=== PATIENT | female | born 1995 | race Caucasian/White ===

== ENCOUNTER → 2024-10-11 13:33 | Outpatient (CLI) | payer OTHER, SELFPAY ==
[2024-10-11 16:21] LABS: Urine Chlamydia NOT DETECTED; Urine N gonorrhoeae NOT DETECTED
== END ==
PROVIDERS: Visit Provider Obstetrics & Gynecology
DX: Z34.81 Encounter for supervision of other normal pregnancy, first trimester (principal); Z3A.08 8 weeks gestation of pregnancy
CPT/HCPCS: 87491; 87591

== ENCOUNTER → 2024-11-08 14:34 | Outpatient (CLI) | payer OTHER, SELFPAY ==
[2024-11-08 15:39] LABS: Add Manual Diff / Slide Review NO; Basophils Absolute Auto 0 /uL (0-100); Basophils Percent Auto 0.4 % (0-2); Eosinophils Absolute Auto 100 /uL (0-450); Eosinophils Percent Auto 0.6 % (2-4); Hematocrit 36.9 % (36-46); Hemoglobin 12.5 g/dL (12.0-16.0); Lymphocytes Absolute Auto 2100 /uL (1100-4500); Lymphocytes Percent Auto 24.7 % (25-40); Mean Corpuscular Volume 85.2 fL (80-100); Monocytes Absolute Auto 300 /uL (0-900); Monocytes Percent Auto 3.8 % (3-14); Neutrophils Absolute Auto 5800 /uL (1500-7000); Neutrophils Percent Auto 70.5 % (50-75); Platelet Count 280 X10^3/uL (150-400); Red Blood Cell Count 4.33 X10^6/uL (4.0-5.2); Red Cell Distribution Width 13.7 % (11.6-14.8); White Blood Cell Count 8.3 X10^3/uL (4.5-11.0)
[2024-11-08 15:45] LABS: Natera Collection Specimen Collected
[2024-11-08 15:58] LABS: HEMOLYSIS < 15 (0-50); Iron 80 ug/dL (37-170)
[2024-11-08 16:09] LABS: Percent Iron Saturation 24 % (15-50); Total Iron Binding Capacity 339 ug/dL (265-497); Transferrin 327 mg/dL (206-381)
[2024-11-10 05:10] LABS: RPR Screen Non Reactive (Non Reactive); Varicella IgG Antibody Reactive (Non Reactive)
[2024-11-10 17:24] LABS: Hepatitis B Surface Antigen NEGATIVE s/c (NEGATIVE); Rubella Antibody IgG 50.9 IU/mL (>15)
[2024-11-10 17:41] LABS: HIV 1 & 2 Ab/Ag 4th Gen Combo NEGATIVE (NEGATIVE); Hep C Virus Ab w/Reflex Quant NEGATIVE s/c (NEGATIVE)
== END ==
PROVIDERS: Student in an Organized Health Care Education/Training Program; Referring Provider Obstetrics & Gynecology; Visit Provider Obstetrics & Gynecology
DX: Z34.80 Encounter for supervision of other normal pregnancy, unspecified trimester (principal); Z36.0 Encounter for antenatal screening for chromosomal anomalies; D50.9 Iron deficiency anemia, unspecified
CPT/HCPCS: 36415; 80055; 83540; 83550; 86787; 86803; 86850; 86870; 86886; 86900; 86901; 87086; 87389

== ENCOUNTER → 2025-01-02 11:51 | Outpatient (CLI) | payer OTHER, SELFPAY ==
--- NOTE | 2025-01-02 11:52 | DI.US.S_ITS ---
PROCEDURE: US OB >= 14 WEEKS FETUS INDICATIONS: 20 week anatomy scan OUTSIDE/PRIOR DATING DATA: Last menstrual period (LMP): 08/12/2024. LMP-based estimated date of delivery (RANDY): 05/19/2025. First dating scan (date and location): 10/11/2024. Estimated date of delivery (RANDY) from first dating scan: 05/19/2025. The calculations are made using the Clinical/ultrasound RANDY of 05/19/2025. TECHNIQUE: Real-time scanning was performed of the fetus, with image documentation and biometric measurements. COMPARISON: [facility], , US OB <= 14 WEEKS FETUS, 11/08/2024, 14:33. FINDINGS: General: A single living intrauterine gestation is present. Presentation: Breech. Placenta: Placental position is anterior , without previa. Amniotic fluid index: 20.2 cm, normal range is 5-24 cm. Single deepest vertical pocket is 6.8 cm. heart rate: 144 beats per minute. Maternal cervical canal: 4.7 cm long. Normal lower limit is 2.5 cm. biometrics: Biparietal diameter: 5.1 cm 21 weeks 3 days Head circumference: 18.9 cm 21 weeks 1 day Abdominal circumference: 16.7 cm 21 weeks 4 days Femur length: 3.4 cm 20 weeks 4 days Clinically estimated gestational age: 20 weeks 3 days Composite gestational age from present scan: 21 weeks 1 day Estimated weight and percentile: 402 g 83rd percentile Anatomic survey: Neuro: Ventricles are non-dilated at less than 10 mm. Cisterna magna is normal at 3-11 mm. Cerebellum is normal in size and morphology. Nuchal skin fold: Normal at less than 6 mm between 14-21 weeks gestational age. Face: Nose and lips, facial profile are normal. Spine: No evidence for spina bifida. Heart: 4-chambered heart is present, with normal ventricular outflow tracts. Diaphragm: Diaphragm is intact. Stomach: Left-sided stomach is present. Kidneys: No hydronephrosis. Normal is less than 5 mm in 2nd trimester, less than 7 mm in 3rd trimester. Cord: 3-vessel cord has orthotopic insertion. Bladder: Normal in size. Extremities: All 4 extremities identified. IMPRESSION: Single live intrauterine with gestational age today of 21 weeks 1 day. Anatomy is within normal limits. We strive to produce accurate, complete, and clear reports of imaging services. To assist us in improving patient care, this report was composed using standard report templates and voice recognition software. Therefore, it may contain abnormal punctuation, insertions and/or omissions. Occasional wrong-word or sound-alike substitutions may occur. Though we review the report and make efforts to correct it, we do recommend that the report be read carefully in proper context to recognize any text inaccuracies. Dictated by: Ale Turner M.D. on 01/02/2025 at 16:06 Approved by: Ale Turner M.D. on 01/02/2025 at 16:07
== END ==
PROVIDERS: Referring Provider Student in an Organized Health Care Education/Training Program; Visit Provider Student in an Organized Health Care Education/Training Program
DX: Z34.82 Encounter for supervision of other normal pregnancy, second trimester (principal); Z3A.21 21 weeks gestation of pregnancy
CPT/HCPCS: 76811

== ENCOUNTER 2025-02-02 18:47 | Inpatient (IN) | payer OTHER, SELFPAY ==
--- NOTE | 2025-02-02 19:25 | PM.OBHP.IH.1 ---
OB HPI Date/Time Date of admission: 02/02/25 Date Patient Seen: 02/02/25 Time Patient Seen: 19:26 History of Present Condition Chief complaint: demise RANDY Calculator Estimated Delivery Date Method Current WG Current Estimate 05/19/25 Ultrasound #1 24w 6d Other Estimates 05/19/25 Conception 24w 6d : 2 Para: 1 Narrative: 29yo at 24+6wks presented today after diagnosis of demise at outside ER. She reports feeling whole body itching that started 3 days ago, then went to the ER yesterday where she was found to have a demise. care: good care Dating criteria OB: LMP confirmed by 1st trimester US Ultrasounds: normal mid trimester US Narrative: Ultrasound Ultrasound Details:: Anatomy US 01/02/25: normal anatomy, anterior placenta, EFW 83%ile Expected Delivery Route/Plan Specific Issues/Plans [x] cfDNA- low risk XY Obesity (pre-preg BMI 30) Hx of gallstones (may need referral but [facility]) Gui Assigned to [facility] Indications Indication for induction OB: other ( demise) Preadmission Labs Last OB Lab Results: Blood Type O Positive 11/08/24 14:44 Antibody Screen Positive 11/08/24 14:44 Hct 36.9 % (36-46) 11/08/24 14:44 Hgb 12.5 g/dL (12.0-16.0) 11/08/24 14:44 Hep Bs Antigen Negative s/c (NEGATIVE) 11/08/24 14:44 Hepatitis C Antibody Negative s/c (NEGATIVE) 11/08/24 14:44 Rubella Antibody 50.9 IU/mL (>15) 11/08/24 14:44 VZV IgG Antibody Reactive (Non Reactive) 11/08/24 14:44 -: Chlamydia screen: negative, Gonorrhea screen: negative and Urine: negative Genetic Screens: Cell-free DNA: Normal External Labs -: Urine: negative Prior (ies) Past Pregnancies Del. Date GA/Weeks Labor Lgth Wt Sex Route Outcome Anesthesia Place Delv Breastfeed Preg Comp Name 11/03/22 40.5 8 lb Female vaginal live - full term epidural Sabianism [place] Still going as of 10/05/24 post-dates induction [facility] Evaluation Evaluation Baseline heart rate: 0 Comments: demise confirmed on bedside ultrasound [facility] Medical History (Updated 12/06/24 @ 14:10 by Donna Park DO) Abscessed tooth (~07/2024) Abnormal ECG Exercise-induced asthma Stress fracture of lumbar vertebra Pancreatitis (~07/2023) Surgical History (Updated 10/05/24 @ 13:42 by Shavon Payne RN) History of carpal tunnel release History of tonsillectomy Family History (Updated 10/05/24 @ 13:44 by Shavon Payne RN) Mother Breast cancer Fibromyalgia Grandfather GERD (gastroesophageal reflux disease) Social History marital status: number of children: 1 household members: spouse and children lives independently: Yes caregiver/support person: Yes housing: house pets and animals: Yes (cat) education level: college (associate's degree) occupational status: unemployed current occupational exposures/hazards: No special sven needs: No travel history: over 6 months ago seatbelt use: always water heater temp set < 120 deg: No working smoke detector in home: Yes fire extinguisher in home: Yes carbon monox detector in home: Yes firearms in home: No do you feel safe at home: Yes Tobacco: How many years used: 6 second hand exposure: Yes ( vapes, not around pt) alcohol intake: never substance use type: does not use during the past year weight has: remained stable well-balanced diet: about half the time daily servings fruits/ve-4 caffeine: Yes (occasional black tea) Type(s) of exercise: none Meds Home Medications and Allergies Home Medications Medication Instructions Recorded Confirmed Type [id number] 400 mcg-om3 35 mg-dha 25 tab PO 10/05/24 01/17/25 History mg-epa 5 mg-fish oil chewable tablet ondansetron 8 mg disintegrating 8 mg PO Q8H 10/05/24 01/17/25 History tablet ondansetron HCl 4 mg tablet 4 mg PO Q8H #20 tabs 10/11/24 01/17/25 Rx Allergies Allergy/AdvReac Type Severity Reaction Status Date / Time adhesive AdvReac Intermediate Rash Verified 02/02/25 19:41 Opioids - Morphine Analogues AdvReac Intermediate Vomiting Verified 01/17/25 10:18 Review of Systems Review of Systems ROS: Yes All systems reviewed with the patient and are negative except as otherwise documented OB Exam Resp Effort & Inspection: normal respiratory effort and able to speak in complete sentences Extremities Lower extremity: Yes normal to inspection GI Other: soft, nontender Presentation: transverse/shoulder Assessment and Plan Assessment and Plan Assessment and Plan narrative: 29yo at 24+6wks with newly diagnosed demise, admitted for induction of labor. Noted to have anti-rimma antibodies on her new OB labs. -discussed plan for induction with oral cytotec -epidural PRN -discussed additional labs to evaluate potential causes of demise, including bile acids given her extreme itching this week -reviewed option for autopsy, and discussed whether or not she wants to hold baby after delivery; pt undecided at this time -all her and her partner's questions were answered at this time Time-Based Coding :: [30min] spent with patient and on the chart (including review of chart, obtaining history, exam, reviewing outside data, placing orders, documenting exam and treatment plan, and counseling patient) on [02/02/25].
[2025-02-02] MEDS: miSOPROStoL 25 MCG TABLET 100 MCG PO (20:33)
[2025-02-02 20:35] VITALS: BP 129/61
[2025-02-02 20:39] LABS: Add Manual Diff / Slide Review NO; Basophils Absolute Auto 0 /uL (0-100); Basophils Percent Auto 0.2 % (0-2); Eosinophils Absolute Auto 0 /uL (0-450); Eosinophils Percent Auto 0.5 % (2-4); Hematocrit 35.1 % (36-46); Hemoglobin 12.1 g/dL (12.0-16.0); Lymphocytes Absolute Auto 1800 /uL (1100-4500); Lymphocytes Percent Auto 18.4 % (25-40); Mean Corpuscular HGB Conc 34.6 % (30-36); Mean Corpuscular Hemoglobin 29.7 PG (26-34); Mean Corpuscular Volume 85.9 fL (80-100); Monocytes Absolute Auto 500 /uL (0-900); Monocytes Percent Auto 5.1 % (3-14); Neutrophils Absolute Auto 7600 /uL (1500-7000); Neutrophils Percent Auto 75.8 % (50-75); Platelet Count 280 X10^3/uL (150-400); Red Blood Cell Count 4.09 X10^6/uL (4.0-5.2)
[2025-02-02 20:48] LABS: Hemoglobin A1C% w Est Avg Glu 4.8 % (4.0-6.0)
[2025-02-02 20:49] LABS: Alanine Aminotransferase 637 IU/L (<35); Albumin 3.4 g/dL (3.5-5.0); Albumin Globulin Ratio 1.2 (1.0-2.8); Alkaline Phosphatase 112 U/L (38-126); Aspartate Aminotransferase 160 IU/L (14-36); Bilirubin Total 0.8 mg/dL (0.2-1.3); Bilirubin Unconjugated 0.2 mg/dL (0.0-1.1); Globulin 2.8 g/dL (1.7-4.1); Total Protein 6.2 g/dL (6.3-8.2)
[2025-02-02 20:52] LABS: HEMOLYSIS 51 (0-50)
[2025-02-02 21:20] LABS: TSH w/ Reflex to FT4 0.04 uIU/mL (0.47-4.68)
[2025-02-02] MEDS: hydrOXYzine HCL 25 MG TABLET PO (23:14)
[2025-02-03 00:22] LABS: Free T4, Direct Thyroxine 0.61 ng/dL (0.78-2.19)
[2025-02-03] MEDS: miSOPROStoL 25 MCG TABLET 100 MCG PO ×2 (00:34→04:32)
--- NOTE | 2025-02-03 08:06 | PM.OBPNLAB ---
Date/Time Date Patient Seen: 02/03/25 Time Patient Seen: 08:06 Pain Control Pain control: tolerating well Contractions Contraction intensity: Mild Assessment and Plan Assessment: induction ongoing Comments: Pt tolerating well. Will increase misoprostol to 200mcg q4hrs. Epidural prn. Pt declines autopsy. Planning to hold baby after delivery.
[2025-02-03] MEDS: miSOPROStoL 25 MCG TABLET 200 MCG VAG (09:12)
[2025-02-03] MEDS: miSOPROStoL 200 MCG TABLET VAG ×3 (12:09→18:32)
[2025-02-03] MEDS: miSOPROStoL 200 MCG TABLET PO (21:34)
[2025-02-03] MEDS: FENT 2MCG/ML BUPIV 0.125% EPI 200 MCG/100 ML PLAST..BAG 6 MCG EPIDURAL (21:40)
[2025-02-03] MEDS: hydrOXYzine HCL 25 MG TABLET PO (21:47)
--- NOTE | 2025-02-03 23:04 | PM.AN.REGBLK ---
Regional Block Pre-procedure Procedure: Continuous Lumbar Epidural for L&D Attending OB provider: Donna Park PMH/ROS narrative: at 24+ weeks EGA with demise. IOL. No significant PMH, no medical complications with . LFT's mildly elevated, BP's normal, CBC normal. ASA Class: II Labs: Hct 35.1 % (36-46) L 02/02/25 20:15 Plt Count 280 X10^3/uL (150-400) 02/02/25 20:15 Medications: Current Medications Generic Name Dose Route Start Last Admin Trade Name Freq PRN Reason Stop Dose Admin Carboprost Tromethamine 250 mcg 02/02/25 19:18 Carboprost 250 Mcg/Ml Ampul IM Q90M PRN Bleeding Diphenhydramine HCl 25 mg 02/03/25 22:20 Diphenhydramine 50 Mg/Ml Vial IV Q10M PRN Pruritis Hydroxyzine HCl 25 mg 02/02/25 21:31 02/03/25 21:47 Hydroxyzine Hcl 25 Mg Tablet PO 25 mg Q4H PRN Administration Nausea Oxytocin/Lactated Ringer's 30 unit in 500 mls @ 200 mls/hr 02/02/25 19:18 Oxytocin Premix IV CONT PRN Bleeding Protocol Tranexamic Acid 1,000 mg/ 100 mls @ 600 mls/hr 02/02/25 19:18 Sodium Chloride IV NOW PRN Bleeding Lactated Ringer's 1,000 mls @ 125 mls/hr 02/03/25 22:00 Lactated Ringers IV CONT ROYCE FENT 2MCG/ML BUPIV 0.125% EPI 200 mcg in 100 mls @ 6 mls/hr 02/03/25 22:30 Fentanyl/Bupiv/Ns 2mcg/Ml - 0.125% EPIDURAL CONT ROYCE Lidocaine HCl 20 ml 02/02/25 19:18 Lidocaine 1% 20 Ml INJ INTRA-OP PRN Post Delivery Methylergonovine Maleate 0.2 mg 02/02/25 19:18 Methylergonovine 0.2 Mg Tablet PO Q6HR PRN Heavy Bleeding Misoprostol 200 mcg 02/03/25 21:30 02/03/25 21:34 Misoprostol 200 Mcg Tablet PO 200 mcg Q3H ROYCE Administration Naloxone HCl 0.2 mg 02/02/25 19:18 Naloxone 0.4 Mg/Ml Vial IV Q2MIN PRN Opiate Reversal Ondansetron HCl 4 mg 02/02/25 19:18 Ondansetron 4 Mg/2 Ml Inj IV Q4HR PRN Nausea And Vomiting Oxytocin 10 unit 02/02/25 19:18 Oxytocin 10 Unit/Ml Vial IM NOW PRN Bleeding Zolpidem Tartrate 10 mg 02/02/25 21:31 Zolpidem 5 Mg Tablet PO BEDTIME PRN Sleep Allergies: Allergies Allergy/AdvReac Type Severity Reaction Status Date / Time adhesive AdvReac Intermediate Rash Verified 02/02/25 19:41 Opioids - Morphine Analogues AdvReac Intermediate Vomiting Verified 01/17/25 10:18 Procedure Insertion date: 02/03/25 Insertion time: 22:45 Prep/Local: betadine x3 and 1% lidocaine Interspace: L34 Patient position: sitting Needle: 18 gauge Hustead (CSE: 27g Pencan through Hustead. Clear CSF. 0.5mL 0.5% bupiv MPF) Loss of resistance with: saline JONES at (cm): 6 Catheter placed at SKIN (cm): 12 Catheter in SPACE (cm): 6 Insertion: No CSF, No Blood, No Paresthesia with insertion, No Paresthesia with injection and No Test dose reaction Initial Medications TEST DOSE time: 22:46 TEST DOSE: 1.5% lidocaine with epinephrine 1:200k (mL): 3 BOLUS DOSE time: 22:52 BOLUS DOSE (mL): 4 BOLUS DOSE med: other (infusate) Infusion INFUSION: 0.125% bupivacaine and with fentanyl 2 mcg/mL Initial rate (mL/hr): 8 Subsequent interventions: PCEA@8+4 Post-procedure Anesthesia date START: 02/03/25 Anesthesia time START: 22:31 Anesthesia date END: 02/04/25 Anesthesia time END: 06:10 Post-procedure Anesthesia Assessment: Yes CV function: HR/BP stable, Yes Resp function: RR/sat/airway adequate, Yes Post-op hydration adequate, Yes Pain control adequate, Yes Nausea & vomiting absent, Yes Temperature > 36 C, Yes Mental status appropriate and No Anesthesia complications
[2025-02-03] MEDS: LACTATED RINGERS 1,000 ML 125 ML IV (23:08)
[2025-02-04] MEDS: miSOPROStoL 200 MCG TABLET PO ×2 (00:45→03:45)
[2025-02-04] MEDS: diphenhydrAMINE 50 MG/ML VIAL 25 MG IV ×2 (03:52→04:22)
[2025-02-04] MEDS: hydrOXYzine HCL 25 MG TABLET PO (04:22)
--- NOTE | 2025-02-04 04:57 | PM.OBPNLAB ---
Date/Time Date Patient Seen: 02/04/25 Time Patient Seen: 04:57 Pain Control Pain control: epidural Pelvic Exam station: +3 Amniotic membrane status: Ruptured Assessment and Plan Comments: 29yo at 25+1wks with IUFD, undergoing induction. comfortable with epidural. SROM about 4:45am. station is about +3. -will begin pushing efforts once patient is ready
[2025-02-04] MEDS: FENT 2MCG/ML BUPIV 0.125% EPI 200 MCG/100 ML PLAST..BAG 6 MCG EPIDURAL (05:29)
[2025-02-04] MEDS: OXYTOCIN PREMIX 30 UNIT/500 ML PLAST..BAG 200 UNIT IV (05:52)
--- NOTE | 2025-02-04 06:21 | PM.OBPRVD ---
Events: Other (Intrauterine demise) Labor & Delivery Delivery date: 02/04/25 Delivery Time: 05:58 Cervical ripening method: per misoprostal protocol Delivery monitor: external uterine Route of delivery: L&D Laceration Description: None Quantitative Blood Loss: 250 Anesthesia Type: Epidural Complications: none Narrative: The patient progressed to c/c/+3 with cytotec induction and epidural anesthesia. After one maternal push, the delivered in cephalic position, quickly followed by the body. No signs of life were present at time of delivery. The cord was doubly clamped and cut, and the was placed in the bassinet. The placenta delivered spontaneously about 15min after delivery. The fundus was noted to be firm with bimanual massage and pitocin. Inspection performed of the vagina and perineum, and there were no lacerations. The patient tolerated delivery well. Placenta was sent to pathology for review. Parents decline autopsy. Baby 1: Infant gender: Male Presentation: vertex Placenta delivery description: Spontaneous score (1 min): 0 score (5 min): 0 weight: 1 lb 6.328 oz Plan for aftercare: Routine care
[2025-02-04] MEDS: LACTATED RINGERS 500 ML 1000 ML IV (08:57)
[2025-02-04 10:01] LABS: Alanine Aminotransferase 441 IU/L (<35); Albumin 2.7 g/dL (3.5-5.0); Albumin Globulin Ratio 0.9 (1.0-2.8); Alkaline Phosphatase 101 U/L (38-126); Aspartate Aminotransferase 96 IU/L (14-36); BUN Creatinine Ratio 11.8 (6-22); Bilirubin Total 0.6 mg/dL (0.2-1.3); Blood Urea Nitrogen 4 mg/dL (7-17); Calcium 8.8 mg/dL (8.4-10.2); Carbon Dioxide 18 mmol/L (22-32); Chloride 109 mmol/L (98-107); Estimated Glomerular Filt Rate > 60 mL/min (>60); Globulin 2.9 g/dL (1.7-4.1); Glucose 100 mg/dL (70-99); HEMOLYSIS < 15 (0-50); Potassium 3.7 mmol/L (3.4-5.1); Sodium 134 mmol/L (137-145); Total Protein 5.6 g/dL (6.3-8.2)
--- NOTE | 2025-02-04 10:48 | PM.OBDS.1 ---
Discharge Providers Provider Date of admission: 02/02/25 18:47 Discharge Date: 02/04/25 Primary care physician: Doctor Leeann MD Consults: 02/02/25 19:18 Consult to Anesthesiology Urgent Comment: Consulting Provider: Anesthesiologist Reason for consultation: Epidural 02/05/25 06:18 Consult to Analog Ic Design Engineer Routine Comment: Discharge provider: Donna Park DO Summary Hospital Course Date Patient Seen: 02/04/25 Time Patient Seen: 10:48 Diagnoses: Intrauterine demise, diagnosed at 24+6wks Elevated liver enzymes in Obesity Hospital Course: 29yo at 24+6wks admitted for induction of labor due to newly diagnosed demise. She progressed to an uncomplicated spontaneous vaginal delivery, productive of a nonviable male . Her course was unremarkable. By day of delivery, she was ambulating, tolerating regular diet, voiding spontaneously, with moderate lochia. Thus on day of delivery, she was discharged home. 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 (5) Obesity affecting : Status: Acute (6) 24 weeks gestation of : Status: Acute Status at Discharge Cognitive/behavioral status at discharge: oriented Functional status at discharge: independent ambulation Overall status at discharge: patient is progressing back to baseline Time Spent with Patient Time attestation: Total time spent providing and/or coordinating discharge services: Time spent: Less than 30 minutes Objective Labs 02/02/25 20:15 02/04/25 09:06 Labs: Laboratory Results - last 24 hr 02/02/25 02/04/25 20:15 09:06 Sodium 134 L Potassium 3.7 Chloride 109 H Carbon Dioxide 18 L BUN 4 L Creatinine 0.34 L Estimated GFR > 60 BUN/Creatinine Ratio 11.8 Glucose 100 H Calcium 8.8 Total Bilirubin 0.6 AST 96 H ALT 441 H Alkaline Phosphatase 101 Total Protein 5.6 L Albumin 2.7 L Globulin 2.9 Albumin/Globulin Ratio 0.9 L Ref Test (Refrig) Comment Blood Type O Positive Antibody Screen Positive Antibody Identification Anti-K Crossmatch See Detail Exam Vital Signs (past 8 hours): vitals reviewed in OBIX, within normal parameters Const General: cooperative, healthy appearing, comfortable and No acute distress Resp Effort & Inspection: normal respiratory effort GI Inspection: normal to inspection Other: fundus firm and nontender at U-2 Skin General: no rashes or lesions noted Neuro General: patient alert and patient awake Extrem General: normal to inspection, no pedal edema and no calf tenderness Psych Mood: congruent mood Affect: normal affect Discharge Plan Discharge Plan Patient Disposition: Home Provider Discharge Comment: Use ibuprofen 600mg every 6hrs as needed for pain. Avoid use of acetaminophen due to your elevated liver enzymes. Avoid placing anything in the vagina for 4 weeks. Discharge orders & Medications Prescriptions: Continued [id number] oil 400 mcg-35 mg -25 mg-5 mg tablet,chewable 1 tab PO DAILY chlorpheniramine maleate [Allergy (chlorpheniramine)] 4 mg Tablet 4 mg PO Q4H PRN (Reason: Allergy Symptoms) triamcinolone acetonide 0.5 % Cream 1 applic TOPICAL BID Follow up/Referrals: Donna Park, [Physician] - (My clinic should call you next week for follow-up appointments at 2 weeks and 6 weeks.) Diet/Activity/Treatments Diet: Diet as Tolerated Activity: As tolerated. Skin/Wound/Dressing Care Report to your healthcare provider any signs of infection, such as:: chills, fever, increased pain and unusual drainage Visit Report/Discharge Packet Instructions: DI for Stillbirth Stand Alone Forms: Patient Portal/API, Stroke Signs & Symptoms Discharge Data Primary Care Provider: Mariyacellaneous,Doctor Attending Provider: Donna Park Admit Date/Time: 02/02/25 18:47
--- NOTE | 2025-02-04 11:10 | PATH_ITS ---
[facility] Accession Number: [id number] No. of containers..01 Tissue . 01 Material submitted: . placenta - PLACENTA . 01 Diagnosis: PLACENTA, DELIVERY: Second trimester placenta (24+6wks), weight 423 grams (97th percentile for gestational age). Three vessel umbilical cord without grossly identified knots. Negative for funisitis, acute chorioamnionitis, or villitis. Adherent blood clot worrisome for subchorionic thrombus. . Note: This case will be sent for expert consultation, to Dr. Ashley Calles at [facility] and a consult report will follow. [facility] 02/16/2025 1248 Local . 01 Comment: . . 01 Electronically signed: . Sandor Ward MD, Pathologist NPI- [id number] . 01 Gross description: . Received in formalin with two identifiers and no site on jar, is a nephroid-shaped cisneros placenta with a trimmed weight of 423 grams and measuring 16.8 x 10.4 cm and ranging from 2.7 to 4.9 cm thick. No accessory lobes are identified. . The membranes are calloway and translucent with amnion approximately 50% from the chorion. The membranes insert and rupture at the margin. The cord is 16.8 cm in length by 0.6 cm in average diameter with a leftward coil and index of approximately 1 twist per 5 cm. Sectioning reveals unremarkable trivascular architecture with no knots of lesions identified. The cord inserts eccentrically 4.9 cm from the nearest disc edge. . The surface is blue to violaceous with unremarkable arborizing vasculature and no discoloration or lesions identified. . The maternal surface is apparently complete with adherent fresh soft hemorrhagic material that is indurating the maternal surface and occupies approximately 80% of the maternal surface. The surface is apparently complete with no additional discoloration or lesions identified. Sectioning reveals slightly pale, pink-red, spongy cut surface and the placenta to be puckered and irregular giving the nephroid shape. Red-orange laminated hemorrhagic material is identified subchorionically across an area measuring 5.7 x 5.1 cm and is up to 1.2 cm in maximum thickness. This hemorrhagic area is grossly contiguous with the cord insertion site and occupies approximately one-third of the surface. No additional lesions or discoloration is identified. . Vice President Sales sections are submitted as follows: A1: Membrane roll and placental end of cord. A2: Membrane roll and end of cord. A3-A4: surface hemorrhagic lesion. A5-A6: Maternal surface hemorrhagic material. A7-A9: Central full-thickness unremarkable sections. ([id number]) A10-A11: surface hemorrhagic lesion. A12-A13: Maternal surface hemorrhagic lesion. ([id number]) /MRV 02/15/[address] [place] [address] . 01 Pathologist provided ICD-10: O36.4XX9 . 01 CPT . 800697 Specimen Comment: A courtesy copy of this report has been sent to [facility] Pathology Performed at: [address] [address], [place], [place] [id number] MD Leonard Kiser MD Phone: [phone]
[2025-02-04 11:42] LABS: Free T3, Triiodothyronine Free 2.96 pg/mL (2.77-5.27)
[2025-02-04 14:39] LABS: Bile Acids 20.8 umol/L (0.0-10.0)
[2025-02-05 15:08] LABS: Cardiolipin Ab IgG <9 GPL U/mL (0-14); Cardiolipin Ab IgM <9 MPL U/mL (0-12)
[2025-02-06 08:09] LABS: Hepatitis A Antibody IgM Negative (Negative)
[2025-02-06 11:09] LABS: Parvovirus B19 IgG 5.1 index (0.0-0.8); Parvovirus B19 IgM 0.1 index (0.0-0.8)
[2025-02-06 12:40] LABS: Dilute Russell Viper Venom 35.2 sec (0.0-47.0); Lupus Reflex Interpretation Comment: (.); PTT-LA 32.4 sec (0.0-43.5)
[2025-02-06 14:08] LABS: Toxoplasma gohndii IgG <3.0 IU/mL (0.0-7.1); Toxoplasma gondii IgM <3.0 AU/mL (0.0-7.9)
== END 2025-02-04 12:25 | disposition home or self-care (01) | DRG 807 ==
PROVIDERS: Admitting Provider Student in an Organized Health Care Education/Training Program; Referring Provider Student in an Organized Health Care Education/Training Program; Visit Provider Student in an Organized Health Care Education/Training Program
DX: O36.4XX0 Maternal care for intrauterine death, not applicable or unspecified (principal); Z37.1 Single stillbirth; Z3A.24 24 weeks gestation of pregnancy; O99.214 Obesity complicating childbirth
CPT/HCPCS: 36415; 59050; 59200; 80053; 80076; 82239; 83036; 84439; 84443; 84481; 85025; 85598; 85613; 86709; 86747; 86777; 86778; 86850; 86870; 86886; 86900; 86901; 87497; G0378; A9270; G0379; J1200; J2590; S0191